=== PATIENT | female | born 1995 | race Caucasian/White ===

== ENCOUNTER 2020-09-09 09:21 | Inpatient (IN) | payer BC, OTHER ==
[~2020-09-09] VITALS: Ht 165.1 cm; Wt 74.4 kg
[2020-09-09 10:03] LABS: HEMOGLOBIN 13.7 gm/dl (12.3-15.3); RED BLOOD COUNT 4.16 M/UL (4.00-5.10); WHITE BLOOD COUNT 10.3 K/UL (4.5-11.0)
[2020-09-09] MEDS ORDERED: PRENATAL VITAM1 EAC3 PO (10:15)
[2020-09-09] MEDS ORDERED: COLACE100 MG PO (17:36)
[2020-09-09] MEDS ORDERED: IBUPROFEN800 MG PO (17:36)
[2020-09-10 05:30] LABS: HEMOGLOBIN 10.9 gm/dl (12.3-15.3)
== END 2020-09-10 19:27 | disposition home or self-care (01) | DRG 807 ==
LOC: GENOP 09:21 → OB 10:21
PROVIDERS: Obstetrics & Gynecology; ADMIT Obstetrics & Gynecology
PROC: 10E0XZZ Delivery of Products of Conception, External Approach (ICD-10-PCS; principal; 2020-09-09)
PROC: 0W8NXZZ Division of Female Perineum, External Approach (ICD-10-PCS; 2020-09-09)
PROC: 0U7C7ZZ Dilation of Cervix, Via Natural or Artificial Opening (ICD-10-PCS; 2020-09-09)
PROC: 4A1HXCZ Monitoring of Products of Conception, Cardiac Rate, External Approach (ICD-10-PCS; 2020-09-09)
DX: O76 Abnormality in fetal heart rate and rhythm complicating labor and delivery (principal); Z37.0 Single live birth; O69.81X0 Labor and delivery complicated by cord around neck, without compression, not applicable or unspecified; O70.9 Perineal laceration during delivery, unspecified; Z3A.40 40 weeks gestation of pregnancy; Z20.822 Contact with and (suspected) exposure to COVID-19
CPT/HCPCS: 36415; 51702; 83518; 85014; 85018; 85025; 90715; J2210; J2590; J2795; J3010; U0003